=== PATIENT | female | born 1985 | race Hispanic/Latino ===

== ENCOUNTER 2018-11-13 20:13 | Emergency (ER) | payer SELFPAY ==
[~2018-11-13] VITALS: Ht 139.7 cm; Wt 105.0 kg
[~2018-11-13 20:13] MED LIST: ADVIL200 MG PO; AMOXICILLIN500 MG PO; CIPRO500 MG OR; KEFLEX250 MG PO; MOTRIN800 MG PO; NAPROSYN500 MG OR; NAPROSYN500 MG PO; NO HOME MEDS; TYLENOL500 MG OR; ZOFRAN4 MG OR
--- NOTE | 2018-11-13 20:46 | NUR ---
BREATHING TREATMENT GIVEN USING A FACE MASK. BREATHING TECH. FOR GOOD DEPOSITION TO THE LUNGS.
[2018-11-13] MEDS ORDERED: CEPHALEXIN500 M1 PO (22:22)
[2018-11-13] MEDS ORDERED: MEDDOSEPAK PO (22:22)
[2018-11-13 22:49] VITALS: BP 126/66
== END 2018-11-13 22:47 | disposition home or self-care (01) | DRG 153 ==
LOC: ED 20:13
DX: J02.0 Streptococcal pharyngitis (principal)

== ENCOUNTER 2019-09-08 19:10 | Emergency (ER) | payer SELFPAY ==
[~2019-09-08] VITALS: Ht 139.7 cm; Wt 102.0 kg
[~2019-09-08 19:10] MED LIST changes: +CEPHALEXIN500 M1 PO; +MEDDOSEPAK PO
[2019-09-08] MEDS ORDERED: CODEINE/GUAIFEN1 SOL PO (22:37)
[2019-09-08 22:53] VITALS: BP 122/79
== END 2019-09-08 23:17 | disposition home or self-care (01) | DRG 153 ==
LOC: ED 19:10
DX: J06.9 Acute upper respiratory infection, unspecified (principal)

== ENCOUNTER 2021-11-27 22:28 | Emergency (ER) | payer SELFPAY ==
[~2021-11-27] VITALS: Ht 139.7 cm; Wt 78.0 kg
[~2021-11-27 22:28] MED LIST changes: +CODEINE/GUAIFEN1 SOL PO
[2021-11-27 23:23] LABS: URINE BILIRUBIN - DIPSTICK NEGATIVE (NEGATIVE); URINE BLOOD DIPSTICK TRACE-INTACT (NEGATIVE); URINE COLOR YELLOW; URINE GLUCOSE - DIPSTICK NEGATIVE (NEGATIVE); URINE KETONE NEGATIVE (NEGATIVE); URINE LEUK ESTERASE TRACE (NEGATIVE); URINE PROTEIN - DIPSTICK NEGATIVE (NEG-TRACE); URINE SPECIFIC GRAVITY <=1.005; URINE UROBILINOGEN - DIPSTICK 0.2 E.U./dL (0.2)
[2021-11-27 23:34] LABS: URINE NITRITE - DIPSTICK NEGATIVE (Negative)
[2021-11-27 23:35] LABS: HEMATOCRIT 34.1 % (37.0-47.0); HEMOGLOBIN 10.8 g/dl (12.0-16.0); IMMATURE GRANULOCYTES 0.3 % (0.0-5.0); MEAN CELL VOLUME 84.6 fL CALC (80.0-100.0); MEAN CORPUSCULAR HGB 26.8 pG CALC (26.0-32.0); MEAN CORPUSCULAR HGB CONC 31.7 g/dL CAL (32.0-36.0); NEUT# 7.31 thou/uL (2.00-7.15); RED BLOOD COUNT 4.03 mill/uL (4.20-5.60); RED CELL DISTRI WIDTH 15.5 % (11.5-15.5)
[2021-11-27 23:45] LABS: ALBUMIN 3.4 g/dL (3.2-5.0); ALKALINE PHOSPHATASE 77 u/l (38-126); AMYLASE 50 u/l (30-110); ANION GAP 10 (6-22 (CALC)); BUN 3 mg/dL (7-17); BUN/CREATININE RATIO 6 (12-20 (CALC)); CARBON DIOXIDE 25 mmol/l (22-30); CHLORIDE 106 mmol/l (95-108); CREATININE 0.5 mg/dL (0.5-1.0); GFR > 60 ML/MIN (>=60 (CALC)); GFR FOR AFR.AMER. > 60 ML/MIN (>=60 (CALC)); LIPASE 28 u/l (23-300); POTASSIUM 3.5 mmol/l (3.5-5.1); SGOT/AST 20 u/l (14-36); SODIUM 138 mmol/l (137-146); TOTAL PROTEIN 6.8 g/dL (6.3-8.2)
[2021-11-27 23:47] LABS: BILIRUBIN, TOTAL 0.4 mg/dL (0.0-1.4)
[2021-11-28] MEDS ORDERED: ONDANSETRON4 MG PO (02:08)
[2021-11-28] MEDS ORDERED: PROTONIX40 MG PO (02:08)
[2021-11-28 02:41] VITALS: BP 138/65
== END 2021-11-28 03:00 | disposition home or self-care (01) | DRG 761 ==
LOC: ED 22:28
PROVIDERS: Emergency Medicine
DX: N83.9 Noninflammatory disorder of ovary, fallopian tube and broad ligament, unspecified (principal); K21.9 Gastro-esophageal reflux disease without esophagitis; M35.00 Sjogren syndrome, unspecified
CPT/HCPCS: Q9967; S0164